=== PATIENT | male | born 1985 | race Two or more races ===

== ENCOUNTER 2024-02-11 14:41 | Inpatient (IN) ==
[2024-02-11 20:34] LABS: INR 1.05 (0.83-1.13)
[2024-02-11 20:41] LABS: Hematocrit 47.1 % (38-53); Hemoglobin 15.9 g/dL (13.2-16.3); Mean Corpuscular Hemoglobin 28.6 pg (27-33); Mean Corpuscular Hgb Conc 33.7 g/dL (31-36); Red Blood Count 5.55 10^6/uL (4.06-5.63); Red Cell Distribution Width 14.3 % (12-17); White Blood Count 12.4 10^3/uL (3.6-10.2)
[2024-02-11 21:14] LABS: ALT 38 U/L (7-52); Albumin/Globulin Ratio 1.7 (1-3); Alkaline Phosphatase 78 U/L (35-149); Anion Gap 13 mmol/L (2-16); Blood Urea Nitrogen 10 mg/dL (6-24); CO2 Carbon Dioxide 24 mmol/L (22-32); Calcium 9.9 mg/dL (8.6-10.3); Chloride 101 mmol/L (101-111); Creatinine, Serum 0.95 mg/dL (0.67-1.17); Glucose 89 mg/dL (70-100); Sodium 138 mmol/L (135-145); eGFR CKD-EPI 104.4 (>60)
[2024-02-11 21:25] LABS: ABS Basophils 0.1 10^3/uL (0.0-0.1); ABS Eosinophils 0.1 10^3/uL (0.0-0.5); ABS Lymphocytes 2.7 10^3/uL (1.0-4.8); ABS Neutrophils 8.5 10^3/uL (1.5-7.6); ABS Nucleated RBC 0.01 10^3/ul; Eosinophil % 0.5 %; Lymphocyte % 21.5 %; Mean Platelet Volume 9.5 fL (7.5-11.2); Nucleated Red Blood Cells % 0.1 %/100WBC (0.0-0.8); Platelet Count 277 10^3/uL (150-450)
[2024-02-11] MEDS: Iohexol 350 (CONTRAST) 500 ML MDV IV ONE (22:23)
[2024-02-12 01:43] LABS: Alcohol, S < 13 mg/dL (<13)
[2024-02-12] MEDS: Nicotine PATCH 21 MG/24 HR PATCH TRANSDERM SCH (05:21)
[2024-02-12 06:10] LABS: Cholesterol 281 mg/dL; HDL Cholesterol 36.7 mg/dL; LDL Cholesterol 215 mg/dL; Triglycerides 148 mg/dL
[2024-02-12 14:02] VITALS: BP 133/99
[2024-02-15 16:23] LABS: IgG Immunoblot Negative (Negative); IgM Immunoblot Negative (Negative)
== END 2024-02-12 16:00 | disposition short-term general hospital (02) | DRG 46 ==
LOC: EDHOLD 14:41 → ED 14:41 → SUATTDRO 02-12 00:45 → MEDTELE 02-12 03:28
PROVIDERS: ADMIT Internal Medicine; ATTEND Hospitalist